=== PATIENT | male | born 1985 | race Caucasian/White ===

== ENCOUNTER → 2017-10-07 | Outpatient (CLI) | payer OTHER ==
[~2017-10-07] VITALS: Ht 185.4 cm; Wt 90.7 kg
[~2017-10-07] MED LIST: BUSPIRONE HCL10 MG PO; BUSPIRONE HCL15 MG PO; CLONIDINE HCL0.3 M3 PO; ESCITALOPRAM OX20 MG PO; FLUOXETINE HCL10 M1 PO; LORAZEPAM 2MG TA2 M1 PO; NEURONTIN 300300 M1 PO; PRAZOSIN HCL2 MG PO; PREDNISONE 20 M20 MG PO; QUETIAPINE FUM300 MG PO; SEROQUEL 25 MG25 M1 PO; STRATTERA18 MG PO; TOPIRAMATE ER50 MG PO; TRAMADOL 50 MG50 MG PO; TRAZODONE HCL50 MG PO; ZANTAC 150MG T150 MG PO
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
[2017-10-07 13:34] VITALS: BP 119/73
== END | disposition home or self-care (01) ==
LOC: PAIN 06:35
DX: M53.3 Sacrococcygeal disorders, not elsewhere classified (principal); M54.81 Occipital neuralgia; F31.9 Bipolar disorder, unspecified; F43.10 Post-traumatic stress disorder, unspecified; F17.210 Nicotine dependence, cigarettes, uncomplicated; Z88.8 Allergy status to other drugs, medicaments and biological substances; Z79.899 Other long term (current) drug therapy; Z98.890 Other specified postprocedural states

== ENCOUNTER → 2017-10-28 | Outpatient (CLI) | payer OTHER ==
[~2017-10-28] VITALS: Ht 185.4 cm; Wt 100.7 kg
[~2017-10-28] MED LIST changes: +NORTRIPTYLINE H10 M2 PO
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
[2017-10-28 13:19] VITALS: BP 130/80
== END ==
LOC: PAIN 08:01
DX: M47.817 Spondylosis without myelopathy or radiculopathy, lumbosacral region (principal); M54.81 Occipital neuralgia; M53.3 Sacrococcygeal disorders, not elsewhere classified